=== PATIENT | female | born 1995 | race Caucasian/White ===

== ENCOUNTER 2017-12-17 16:48 | Emergency (ER) | payer SELFPAY ==
[~2017-12-17] VITALS: Ht 175.3 cm; Wt 75.0 kg
[2017-12-17 16:57] VITALS: BP 144/63; PULSE 86; RESP 16; TEMP 98.1; O2SAT 100
--- NOTE | 2017-12-17 17:08 | PD ---
HPI Chief Complaint: Injury Time Seen by Provider: 17:01 Travel History International Travel<30 days: No Contact w/Intl Traveler<30days: No Traveled to known affect area: No History of Present Illness HPI 22-year-old female who is visiting from out of town, presents the emergency department requesting a cast on her right lower extremity be removed. Patient fractured her ankle one week ago and had a cast placed back home. 2 days ago she got water on the bottom of her cast from a pool and is requesting that her cast be removed and replaced. Patient reports no other acute injury. History Past Medical Histgory Medical History: Denies Significant Hx Social History Alcohol Use: No Tobacco Use: No Review of Systems Except as stated in HPI: all other systems reviewed are Neg Physical Exam Narrative GENERAL: Well-nourished, well-developed female patient, ambulatory with crutch assistance, no acute distress SKIN: Focused skin assessment warm/dry. HEAD: Normocephalic. EYES: No scleral icterus. No injection or drainage. NECK: Supple, trachea midline. No JVD or lymphadenopathy. CARDIOVASCULAR: Regular rate and rhythm without murmurs, gallops, or rubs. RESPIRATORY: Breath sounds equal bilaterally. No accessory muscle use. MUSCULOSKELETAL: No cyanosis, or edema. Right lower extremity cast in place. Cap refill within normal limits. Patient can flex and extend the digits of the affected extremity. I am able to place my hand under the foot and the cast material does feel damp however it is not saturated. Skin appears intact from what I am able to visualize. BACK: Nontender without obvious deformity. No CVA tenderness. Data Data Last Documented VS Vital Signs Date Time Temp Pulse Resp B/P (MAP) Pulse Ox O2 Delivery O2 Flow Rate FiO2 12/17/17 16:57 98.1 86 16 144/63 (90) 100 MDM Medical Screen Exam Complete: Yes Emergency Medical Condition: No Differential Diagnosis Cast replacement Narrative Course 22-year-old female presents emergency department requesting that her right lower extremity cast be replaced. The cast material on the bottom is damp, however it is not saturated in the foot is still secure. This happened 2 days ago. I discussed with my attending and she agrees that the patient will need follow-up with her pathology specialist. We are not going to remove the cast here in the emergency department. At this time there are no urgent or emergent needs medical intervention identified. A medical screening exam was performed: At the time of evaluation the presenting medical condition was determined not to be of an emergent nature. The patient was given the option of receiving additional care, but declined. Patient was given options for additional community resources from which to obtain care. The Patient Has Been advised to seek medical attention for their presenting complaint. The patient has been advised to return to the ER at any time if an emergent condition develops. Primary Impression: Encounter for medical screening examination Condition: Stable Janee Coffman December 17, 2017 17:08
== END 2017-12-17 17:17 | disposition left against medical advice (07) ==
LOC: NEPK 16:48
DX: Z47.89 Encounter for other orthopedic aftercare (principal)
CPT/HCPCS: 99281